=== PATIENT | male | born 1960 | race Two or more races ===

== ENCOUNTER 2019-03-21 10:36 | Emergency (ER) | payer SELFPAY ==
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
[2019-03-21] MEDS ORDERED: LIDOCAINE 1%/EPINEPHRINE INJ 20 ML VIAL INJ ONE (12:04)
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
[2019-03-21 13:11] VITALS: BP 134/80
== END 2019-03-21 13:12 | disposition home or self-care (01) ==
LOC: ER 10:36
DX: S01.111A Laceration without foreign body of right eyelid and periocular area, initial encounter (principal); W20.8XXA Other cause of strike by thrown, projected or falling object, initial encounter; Y93.89 Activity, other specified
CPT/HCPCS: 99282; 12011; J3490